=== PATIENT | male | born 1980 | race Caucasian/White ===

== ENCOUNTER 2016-05-19 19:01 | Emergency (ER) | payer SELFPAY ==
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
[2016-05-19 20:30] VITALS: BP 127/81
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
== END 2016-05-19 20:28 | disposition home or self-care (01) ==
LOC: MW.ED 19:01
DX: S06.0X1A Concussion with loss of consciousness of 30 minutes or less, initial encounter (principal); J32.0 Chronic maxillary sinusitis; W19.XXXA Unspecified fall, initial encounter
CPT/HCPCS: 70450; 70450-26; 99284; 99284-25

== ENCOUNTER 2021-02-16 06:52 | Emergency (ER) | payer BC ==
[2021-02-16 08:05] VITALS: BP 112/73; PULSE 90
== END 2021-02-16 08:00 | disposition home or self-care (01) ==
LOC: MW.ED 06:52
DX: S62.656A Nondisplaced fracture of middle phalanx of right little finger, initial encounter for closed fracture (principal); W00.0XXA Fall on same level due to ice and snow, initial encounter
CPT/HCPCS: 73140-26-F9; 73140-F9; 99283-25